=== PATIENT | female | born 2000 | race Hispanic/Latino ===

== ENCOUNTER 2021-12-30 04:58 | Emergency (ER) | payer SELFPAY ==
[~2021-12-30] VITALS: Ht 162.6 cm; Wt 104.3 kg
[2021-12-30 05:42] LABS: CLARITY,URINE CLEAR (CLEAR); COLOR,URINE YELLOW (YELLOW); KETONES,URINE NEGATIVE (NEGATIVE); LEUKOCYTE ESTERASE ,URINE NEGATIVE (NEGATIVE); NITRITE,URINE NEGATIVE (NEGATIVE); PROTEIN,URINE DIPSTICK NEGATIVE (NEGATIVE); URINE UROBILINOGEN 0.2 mg/dL (0.2 - 1)
[2021-12-30 05:54] LABS: BACTERIA,URINE FEW /HPF; EPITHELIAL CELLS,URINE MODERATE /LPF; RBC,URINE 0-5 /HPF (0-5)
== END 2021-12-30 06:04 | disposition home or self-care (01) ==
LOC: ER 05:03
DX: R20.2 Paresthesia of skin (principal); R30.0 Dysuria; R10.32 Left lower quadrant pain; I10 Essential (primary) hypertension
CPT/HCPCS: 81001; 81025; 87086; 99282